=== PATIENT | male | born 2000 | race Caucasian/White ===

== ENCOUNTER 2024-04-19 13:14 | Emergency (ER) | payer BC ==
[2024-04-19 14:47] LABS: BASOPHILS ABSOLUTE AUTO 0.11 K/uL (0.00-0.10); BASOPHILS PERCENT AUTO 0.5 % (0.1-1.3); HEMATOCRIT 58.8 % (38.4-49.7); IMMATURE GRAN ABSOLUTE AUTO 0.15 K/uL (0.00-0.23); IMMATURE GRAN PERCENT AUTO 0.6 % (0.0-0.7); LYMPHOCYTES ABSOLUTE AUTO 1.67 K/uL (0.8-3.3); LYMPHOCYTES PERCENT AUTO 6.9 % (11.4-47.7); MEAN CORPUSCULAR HEMOGLOBIN 29.3 pg (31.6-35.5); MEAN CORPUSCULAR HGB CONC 35.7 g/dL (31.6-35.5); MONOCYTES ABSOLUTE AUTO 0.84 K/uL (0.20-0.90); MONOCYTES PERCENT AUTO 3.5 % (3.3-12.6); NEUTROPHILS ABSOLUTE AUTO 21.35 K/uL (1.0-7.6); NEUTROPHILS PERCENT AUTO 88.5 % (40.0-78.1); PLATELET COUNT,PLT 370 K/uL (130-375); RED BLOOD CELL COUNT 7.17 M/uL (4.14-5.76); WHITE BLOOD CELL COUNT,WBC 24.1 K/uL (3.2-11.0)
[2024-04-19 14:49] LABS: EOSINOPHILS ABSOLUTE AUTO 0.01 K/uL (0.00-0.40)
[2024-04-19] MEDS: Ondansetron 4 MG/2 ML SDV IVPUSH ONE (14:58)
[2024-04-19] MEDS: Sodium Chloride 0.9% 1,000 ML IV ONE ×2 (14:58→16:00)
[2024-04-19 15:12] LABS: A/G RATIO 1.1 (1.2-2.2); ALANINE AMINOTRANSFERASE,ALT 51 U/L (12-78); ALBUMIN 4.7 g/dL (3.4-5.0); ALKALINE PHOSPHATASE 113 U/L (46-116); ASPARTATE AMNIOTRANSFERASE,AST 28 U/L (15-37); BILIRUBIN TOTAL 0.6 mg/dL (0.2-1.0); BLOOD UREA NITROGEN,BUN 10 mg/dL (7-18); CALCIUM 9.4 mg/dL (8.5-10.1); CARBON DIOXIDE,CO2 24 mmol/L (21-32); CHLORIDE,CL 99 mmol/L (100-108); CREATININE 1.6 mg/dL (0.8-1.3); EST CRCL DRUG DOSING (CG) 75.17 mL/min; ESTIMATED GFR 61 mL/min (>60); GLUCOSE RANDOM 245 mg/dL (74-106); PROTEIN TOTAL,TP 8.9 g/dL (6.4-8.2); SODIUM,NA 135 mmol/L (140-148)
[2024-04-19 15:15] LABS: C-REACTIVE PROTEIN < 0.50 mg/dL (<0.50)
[2024-04-19] MEDS: Ondansetron 4 MG Tab.DIS PO ONE (15:30)
[2024-04-19] MEDS: Iopamidol 612 MG/ML 100 ML Bottle IV SCH (15:31)
[2024-04-19] MEDS: Sodium Chloride 0.9% 80 ML IV SCH (15:31)
[2024-04-19 15:56] LABS: HEMOGLOBIN A1C 5.3 % (4.5-6.2)
[2024-04-19 17:08] LABS: BASOPHILS ABSOLUTE AUTO 0.04 K/uL (0.00-0.10); BASOPHILS PERCENT AUTO 0.3 % (0.1-1.3); HEMATOCRIT 46.4 % (38.4-49.7); HEMOGLOBIN 16.6 g/dL (12.9-16.9); IMMATURE GRAN ABSOLUTE AUTO 0.08 K/uL (0.00-0.23); IMMATURE GRAN PERCENT AUTO 0.5 % (0.0-0.7); LYMPHOCYTES ABSOLUTE AUTO 1.01 K/uL (0.8-3.3); LYMPHOCYTES PERCENT AUTO 6.5 % (11.4-47.7); MEAN CORPUSCULAR HEMOGLOBIN 29.5 pg (31.6-35.5); MEAN CORPUSCULAR HGB CONC 35.8 g/dL (31.6-35.5); MEAN CORPUSCULAR VOLUME 82.4 fL (81.4-99.0); MONOCYTES ABSOLUTE AUTO 0.78 K/uL (0.20-0.90); NEUTROPHILS ABSOLUTE AUTO 13.61 K/uL (1.0-7.6); NEUTROPHILS PERCENT AUTO 87.7 % (40.0-78.1); PLATELET COUNT,PLT 222 K/uL (130-375); RED BLOOD CELL COUNT 5.63 M/uL (4.14-5.76); WHITE BLOOD CELL COUNT,WBC 15.5 K/uL (3.2-11.0)
[2024-04-19 17:17] LABS: CREATININE 1.2 mg/dL (0.7-1.3); EST CRCL DRUG DOSING (CG) 100.23 mL/min
== END 2024-04-19 18:30 | disposition home or self-care (01) ==
LOC: JP.ED 13:14
DX: K52.9 Noninfective gastroenteritis and colitis, unspecified (principal)
CPT/HCPCS: 36415; 74177; 80053; 82009; 82565; 83036; 83605; 83690; 84145; 85025; 86140; 96361; 96374; 99283; 99284; J2405; J3490; J7030; Q9967